=== PATIENT | female | born 1985 | race Caucasian/White ===

== ENCOUNTER 2018-12-17 00:21 | Emergency (ER) | payer MEDICAID, OTHER | END 2018-12-17 00:31 | LOC: EDH 00:21 | DX: F10.129 Alcohol abuse with intoxication, unspecified (principal) ==

== ENCOUNTER 2025-06-03 20:12 | Emergency (ER) | payer MEDICAID, OTHER ==
[~2025-06-03] VITALS: Ht 152.4 cm; Wt 55.3 kg
[2025-06-03 20:46] LABS: APPEARANCE,URINE CLEAR (CLEAR); GLUCOSE, URINE (UA) NEGATIVE (NEGATIVE); LEUKOCYTE ESTERASE ,URINE NEGATIVE Leu/uL (NEGATIVE); NITRATE,URINE NEGATIVE (NEGATIVE); OCCULT BLOOD,URINE NEGATIVE (NEGATIVE)
[2025-06-03 20:53] LABS: ADD UA MICROSCOPIC YES
[2025-06-03 20:54] LABS: SQUAMOUS EPITHELIAL CELL,UR RARE /HPF (0-2)
[2025-06-03 21:04] LABS: IMMATURE GRANULOCYTE ABSOLUTE 0.02 K/uL (0-1); NUCLEATED RED BLOOD CELLS 0.0 % (0.0-0.19); PLATELET COUNT (AUTO) 164 K/uL (130-400); RED BLOOD CELL COUNT(AUTO) 4.48 MIL/uL (4.00-5.50); RED CELL DISTRIBUTION WIDTH 13.0 % (11.0-15.5); WHITE BLOOD COUNT (AUTO) 6.0 K/uL (4.8-10.8)
[2025-06-03 21:13] LABS: CREATININE 0.6 mg/dL (0.5-1.0); GLOMERULAR FILTR. RATE CALC 117.0 mL/min (>90); GLUCOSE,RANDOM 99.0 mg/dL (70-105); SODIUM SERUM 136.0 mmol/L (136-145); UREA NITROGEN, BLOOD 11.0 mg/dL (7-18)
[2025-06-03 21:17] LABS: ASPARTATE AMINOTRANSFERASE 22.0 U/L (10-37); TOTAL PROTEIN, SERUM 8.0 g/dL (6.0-8.3)
--- NOTE | 2025-06-04 01:35 | HMCIMG ---
EXAM: CT Abdomen and Pelvis Without IV contrast CLINICAL HISTORY: LLQ/LUQ abdominal pain TECHNIQUE: Axial computed tomography images of the abdomen and pelvis without intravenous contrast. CONTRAST: No IV contrast. COMPARISON: None provided. FINDINGS: LUNG BASES: The lung bases appear clear. No pleural effusions are seen. LIVER: Unremarkable. GALLBLADDER AND BILE DUCTS: The gallbladder is surgically absent. No biliary ductal dilatation is evident. PANCREAS: Unremarkable. SPLEEN: Unremarkable. ADRENAL GLANDS: Unremarkable. KIDNEYS, URETERS, AND BLADDER: The kidneys appear within normal limits. There is no hydronephrosis or hydroureter. No urinary calculi are seen. The urinary bladder is partially distended. STOMACH AND BOWEL: Unremarkable appearance of the stomach and bowel. No evidence of bowel obstruction. No evidence suggesting enteritis or colitis. No evidence of diverticulitis. APPENDIX: The appendix is surgically absent. PERITONEUM: Trace free fluid is seen in the pelvis, likely physiologic. No free air. LYMPH NODES: No lymphadenopathy is evident. REPRODUCTIVE: The uterus is retroverted. No evidence of adnexal mass. VASCULATURE: No evidence of abdominal aortic aneurysm. BONES: No aggressive-appearing osseous lesion. No acute osseous pathology is evident. The osseous structures are unremarkable. IMPRESSION: No renal/ureteric calculus or hydroureteronephrosis. Trace free fluid in the pelvis, which may be physiologic or due to a ruptured ovarian follicle. Recommend ultrasound of the pelvis for further evaluation. No evidence of acute intra-abdominal or pelvic pathology on this noncontrast study. /Colton
--- NOTE | 2025-06-04 02:51 | ERN ---
General Chief Complaint: Abdominal Pain Stated Complaint: C/O LUQ PAIN RADIATING TO BACK ONSET 24 HRS Time Seen by MD: 20:16 Time Seen by Midlevel: 20:16 Source: patient History of Present Illness Initial Comments 40-year-old female presents to the emergency department for evaluation of left upper quadrant abdominal pain that radiates to the back Allergies: Coded Allergies: No Known Drug Allergies (Unverified Allergy, Unknown, 12/17/18) Past Medical History Past Medical History: No Pertinent History Past Surgical History: Appendectomy, Cholecystectomy Female( History) LMP: May 19, 2025 ROS Dictation CONSTITUTIONAL: Negative except for HPI HEAD/FACE: Negative except for HPI EENT: Negative except for HPI RESPIRATORY: Negative except for HPI GASTROINTESTINAL/ABDOMINAL: Negative except for HPI GENITOURINARY: Negative except for HPI MUSCULOSKELETAL: Negative except for HPI INTEGUMENTARY: Negative except for HPI NEUROLOGICAL/PSYCH: Negative except for HPI HEMATOLOGIC/LYMPHATIC: Negative except for HPI All Systems Negative, Except as noted above. 13 point review of systems assessed and all negative except for above. Physical Exam Physical Exam Dictation Vital Signs reviewed General Appearance: Alert, oriented x 3, mild distress secondary to abdominal pain Head and Face: non-traumatic. Eyes: PERRL, pink conjunctivas, eyelid no trauma, anterior chamber with arcus senilis. Ears: Pinnas intact and no signs of trauma or erythema ear canals clear and no discharge TM no erythema Nose: No discharge, no bleeding. Oropharynx: Mouth normal, tongue pink, pharynx clear,no erythema, tonsils no exudates, no abscesses noted, mucous membrane moist Neck: Supple, non-tender, no thyromegaly, no masses, no JVD, no bruits Breast:Deferred Chest:No tenderness, no crepitus, no paradoxical movement, no retractions Lungs:Clear, well-ventilated, symmetric, no rales, no wheezing, no rhonchi, no stridor, good breath sounds bilaterally Heart: Regular rate, regular rhythm, no murmur, no gallops Vascular: no peripheral edema, Abdomen: Soft, positive bowel sounds, nondistended, no guarding, Left upper quadrant abdominal tenderness, no rebound, no masses no hepatomegaly, no splenomegaly, no Pizano's sign, no hernias. Rectal: Deferred Genital: Deferred Neurological: Normal speech, motor function intact, sensory function intact Musculoskeletal: Neck nontender, full range of motion, back nontender, full range of motion, Extremities: nontender, full range of motion Skin: Color pink, dry, no turgor, no rash, no lacerations, no abrasions, no contusions. Lymphatic: Deferred Results Laboratory and Microbiology Lab and Micro Result Laboratory Tests Test 06/03/25 20:34 06/03/25 20:47 06/04/25 00:38 Urine Color YELLOW (YELLOW) Urine Appearance CLEAR (CLEAR) Urine pH 6.0 (5.0-8.0) Urine Specific [place] 1.033 (1.001-1.031) Urine Protein 20 mg/dL (NEGATIVE) H Urine Glucose (UA) NEGATIVE mg/dL (NEGATIVE) Urine Ketones NEGATIVE mg/dL (NEGATIVE) Urine Occult Blood NEGATIVE (NEGATIVE) Urine Nitrate NEGATIVE (NEGATIVE) Urine Bilirubin NEGATIVE mg/dL (NEGATIVE) Urine Urobilinogen 2.0 mg/dL (0.2-1.0) H Urine Leukocyte Esterase NEGATIVE Ami/uL Urine RBC 2-5 /HPF (0-1) H Urine WBC 0-1 /HPF (0-1) Urine Squamous Epithelial Cells RARE /HPF (0-2) Urine Bacteria None /HPF (None Seen) White Blood Count 6.0 K/uL (4.8-10.8) Red Blood Count 4.48 MIL/uL (4.00-5.50) Hemoglobin 12.8 g/dL (12.0-16.0) Hematocrit 38.4 % (36-48) Mean Corpuscular Volume 85.7 fL (79-99) Mean Corpuscular Hemoglobin 28.6 pg (27.0-33.0) Mean Corpuscular Hemoglobin Concent 33.3 g/dL (32.0-36.0) Red Cell Distribution Width 13.0 % (11.0-15.5) Platelet Count 164 K/uL (130-400) Mean Platelet Volume 10.1 fL (7.5-10.5) Immature Granulocyte % (Auto) 0.3 % (0-1) Neutrophils (%) (Auto) 72.4 % (40.0-77.0) Lymphocytes (%) (Auto) 17.7 % (21.0-51.0) L Monocytes (%) (Auto) 6.7 % (3.0-13.0) Eosinophils (%) (Auto) 2.2 % (0.0-8.0) Basophils (%) (Auto) 0.7 % (0.0-5.0) Neutrophils # (Auto) 4.3 K/uL (1.8-7.7) Lymphocytes # (Auto) 1.1 K/uL (1.0-4.8) Monocytes # (Auto) 0.4 K/uL (0.1-1.0) Eosinophils # (Auto) 0.13 K/uL (0.00-0.70) Basophils # (Auto) 0.04 K/uL (0.00-0.20) Absolute Immature Granulocyte (auto 0.02 K/uL (0-1) Nucleated Red Blood Cells 0.0 % (0.0-0.19) Sodium Level 136 mmol/L (136-145) Potassium Level 3.5 mmol/L (3.5-5.1) Chloride Level 102 mmol/L (101-111) Carbon Dioxide Level 28 mmol/L (21-32) Blood Urea Nitrogen 11 mg/dL (7-18) Creatinine 0.6 mg/dL (0.5-1.0) Glomerular Filtration Rate Calc 117 mL/min (>90) Random Glucose 99 mg/dL (70-105) Total Calcium 8.3 mg/dL (8.5-10.1) L Total Bilirubin 0.6 mg/dL (0.2-1.0) Aspartate Amino Transf (AST/SGOT) 22 U/L (10-37) Alanine Aminotransferase (ALT/SGPT) 16 U/L (12-78) Alkaline Phosphatase 71 U/L (50-136) Total Protein 8.0 g/dL (6.0-8.3) Albumin 4.0 g/dL (3.5-5.0) Lipase 26 U/L (16-77) Serum Test, Qualitative NEGATIVE (NEGATIVE) Stool Occult Blood NEGATIVE (NEGATIVE) Labs Reviewed?: Yes MDM MDM: 40-year-old female presents to the ER with left upper quadrant abdominal pain that has been ongoing for the past 24 hours. Patient also reports black tarry stools over the last couple of days. On physical examination the patient's left upper quadrant abdominal tenderness with no rebound or guarding. Vital signs are stable. Abdominal workup was initiated. CBC shows no leukocytosis, no anemia, no thrombocytopenia. Chemistries are unremarkable. Lipase level was normal. test is negative. Urinalysis does not show any evidence of infection. Stool guaiac is negative. Plan was to discharge patient home but on repeat evaluation the patient is still reports persistent pain to her left upper quadrant. A CT scan of the abdomen/pelvis was performed which reveals trace free fluid in the pelvis which may be physiological in nature or due to a ruptured ovarian follicle. Radiologist recommended an ultrasound. A pelvic ultrasound was performed which does reveal a small amount of free fluid seen adjacent to the uterus. No evidence of ectopic . Negative hCG test. On repeat examination the patient is lying comfortably in bed in no acute distress. Free fluid is most likely physiological in nature I will have patient follow up outpatient Differential diagnosis: Diverticulitis, constipation, obstruction There are no social concerns with this patient. Prescription drug management Prescriptions will include: None Medical management and examination interpretation discussions were had by me with other qualified healthcare professionals as indicated for the patient's care. ED Course Orders Procedure Category Date Status Time Cbc With Differential LAB 06/03/25 Complete 20:23 Comprehensive LAB 06/03/25 Complete Metabolic Panel 20:23 Lipase LAB 06/03/25 Complete 20:23 Testing, LAB 06/03/25 Complete Serum Hcg 20:23 Urinalysis Profile LAB 06/03/25 Complete 20:23 Occult Blood Stool LAB 06/03/25 Complete Single Only 20:23 Ketorolac PHA 06/04/25 Complete Tromethamine 15mg/Ml 00:00 Ct Abdomen/Pelvis W/O CT 06/03/25 Resulted Contrast 23:50 Us Pelvic Non-Ob Comp US 06/04/25 Taken 01:46 Current Medications Medications (Trade) Dose Ordered Sig/Raffy Route PRN Reason Start Time Stop Time Status Last Admin Dose Admin Ketorolac Tromethamine (toRADol) 15 mg ONCE ONCE IM 06/04/25 00:00 06/04/25 00:05 DC 06/04/25 00:29 Vital Signs Date Time Temp Pulse Resp B/P (MAP) Pulse Ox O2 Delivery O2 Flow Rate FiO2 06/03/25 20:14 97.9 81 20 107/76 99 Room Air DX & DISP Disposition: Discharge Departure Impression: Primary Impression: Free fluid in pelvis Condition: Stable Additional Instructions: Work today is unremarkable. There are no signs of infection. Your urinalysis does not show any evidence of infection. A CT scan of the abdomen/pelvis was performed which does reveal a small amount of trace fluid in the pelvis. This could be physiological. However, an ultrasound was performed to rule out an ovarian cyst. Pelvic ultrasound does not show any evidence of a ruptured cyst. It appears the free fluid noted in your pelvis is physiological in nature. However I would like for you to follow up with an OBGYN outpatient for further evaluation if your symptoms persist. Referrals: SELF,REFERRAL (PCP) Time of Disposition: 02:50 I have reviewed the case, and I agree with, Diagnosis and Plan I performed the substantive portion of the visit. I have reviewed and personally made and approve the management plan that is documented in the note by myself or the ASMITA. I acknowledge for responsibility for the patient's management plan. ANDREZ PRICE PAC Jun 04, 2025 02:51
[2025-06-04 03:40] VITALS: BP 118/87; PULSE 82; RESP 16; TEMP 98; O2SAT 99
--- NOTE | 2025-06-04 03:47 | HMCIMG ---
EXAM: US Pelvis, Complete. CLINICAL HISTORY: Free fluid in the pelvis. TECHNIQUE: Transabdominal pelvic ultrasound (complete) with image documentation. COMPARISON: None provided. FINDINGS: The uterus measures 8.7 x 4.7 x 7.7 cm. The endometrial thickness measures up to 10 mm. The right ovary measures 2.6 x 1.9 x 2.5 cm. There is a 1.6 x 1.6 x 1.6 cm dominant follicle within the right ovary. Positive Doppler flow within the right ovary. The left ovary is not visualized due to the overlying bowel gases. Grossly unremarkable left adnexa. Small free fluid is evident adjacent to the uterus. IMPRESSION: Small free fluid is evident adjacent to the uterus. 1.6 cm dominant follicle in the right ovary. No acute process. /Meri
== END 2025-06-04 03:45 | disposition home or self-care (01) ==
LOC: EDH 20:12
DX: R18.8 Other ascites (principal); Z90.49 Acquired absence of other specified parts of digestive tract
CPT/HCPCS: 99285; 74176; 80053; 84703; 83690; 85025; 82272; 81001; 36415; 76856; 96372; J1885; 82270